=== PATIENT | female | born 1960 | race African-American/Black ===

== ENCOUNTER 2017-05-25 16:25 | Emergency (ER) | payer OTHER ==
[2017-05-25 17:15] LABS: #Basophils 0.1 thou/uL (0.0-0.2); #Eosinphils 0.2 thou/uL (0.0-0.7); #Lymphocytes 0.9 thou/uL (1.20-3.40); #Monocytes 1.2 thou/uL (0.11-0.59); %Basophils 0.7 % (0.0-1.0); %Eosinophils 2.3 % (0.0-10.0); %Lymphocytes 11.2 % (21.0-51.0); %Monocytes 13.7 % (0.0-10.0); Hemoglobin 15.2 g/dL (12.0-16.0); Mean Corpuscular HGB CONC 33.4 g/dL (32.0-36.0); Mean Corpuscular Hemoglobin 29.5 pg (27.0-31.0); Mean Corpuscular Volume 88.4 fl (81.0-99.0); Mean Platelet Volume 8.6 fL (7.4-10.4); Platelet Count 264 thou/uL (130-400); Red Blood Cell (RBC) Count 5.16 mill/uL (4.20-5.40); White Blood Cell (WBC) Count 8.4 thou/uL (4.8-10.8)
--- NOTE | 2017-05-25 17:28 | RAD ---
TWO VIEW CHEST: INDICATIONS: Chest pain. FINDINGS: No consolidation or effusion. There is levocurvature of the imaged thoracic spine. The cardiac silh ouette is normal in size. IMPRESSION: No focal consolidation. POS: CARITOH
[2017-05-25 17:33] LABS: Bilirubin Negative (Negative); Blood, Urine Negative (Negative); Clarity CLEAR (Clear); Glucose, Urine (Dipstick) >=1000 mg/dL (Negative); Leukocyte Negative (Negative); Nitrite Negative (Negative); Protein, Urine (Dipstick) Negative (Neg-Trace); Specific Gravity, Urine 1.029 (1.002-1.036); Urobilinogen 0.2 mg/dL (0.2-1.0)
[2017-05-25 17:42] LABS: ALT (SGPT) 44 U/L (8-55); AST (SGOT) 28 U/L (5-34); Albumin 4.3 g/dL (3.5-5.0); Alkaline Phosphatase 154 U/L (40-150); Anion Gap 15 mmol/L (10-20); BUN (Urea Nitrogen) 13 mg/dL (9.8-20.1); Bilirubin, Total 0.2 mg/dL (0.2-1.2); Calc. Creatinine Clearance 0 mL/min (70-130); Calcium 10.7 mg/dL (7.8-10.44); Carbon Dioxide 27 mmol/L (22-29); Chloride 95 mmol/L (98-107); Estimated GFR-MDRD 48; Globulin 3.4 g/dL (2.4-3.5); Glucose 469 mg/dL (70-105); Potassium 3.6 mmol/L (3.5-5.1); Protein, Total 7.7 g/dL (6.0-8.3); Sodium 133 mmol/L (136-145)
[2017-05-25 17:56] LABS: Base Excess-Venous 5.2 mmol/L (0 (+/- 2.5)); Bicarbonate (HCO3v) 30.5 mmol/L (1.0-85.0); CO2 Tension (PvCO2) 45.3 mmHg (41.0-51.0); Calcium, Ionized 1.01 mmol/L (1.12-1.32); Hemoglobin - Calc 17.4 g/dL (12.0-18.0); Potassium 3.4 mmol/L (3.4-4.7); T. Carbon Dioxide 31.9 mmol/L (1.0-85.0); pH (Venous) 7.436 (7.35-7.45); vO2 Saturation-calc 71.9 % (94-98)
[2017-05-25 17:58] LABS: Lipase 34 U/L (8-78)
[2017-05-25 17:59] LABS: CK (CPK) 480 U/L (29-168)
[2017-05-25 18:03] LABS: CKMB 5.1 ng/mL (0-6.6); Troponin I Less than 0.010 ng/mL (< 0.028)
[2017-05-25] MEDS ORDERED: Insulin Regular 300 UNITS/3 ML VIAL ONE (19:04)
--- NOTE | 2017-08-01 14:28 | EKG ---
Test Reason : Blood Pressure : / mmHG Vent. Rate : 086 BPM Atrial Rate : 086 BPM P-R Int : 202 ms QRS Dur : 102 ms QT Int : 358 ms P-R-T Axes : 064 015 040 degrees QTc Int : 428 ms Normal sinus rhythm Low voltage QRS Cannot rule out Anteroseptal infarct , age undetermined Abnormal ECG Confirmed by JOHN SANTOS, SHAR ([id number]), editor magazine [employer] ([id number]) on 08/01/2017 2:27:59 PM Referred By: Confirmed By:SHAR LOPEZ MD
== END 2017-05-25 19:45 | disposition home or self-care (01) ==
LOC: ERS 16:25
DX: E11.65 Type 2 diabetes mellitus with hyperglycemia (principal); R07.9 Chest pain, unspecified; E66.9 Obesity, unspecified; E78.5 Hyperlipidemia, unspecified; I10 Essential (primary) hypertension; R19.00 Intra-abdominal and pelvic swelling, mass and lump, unspecified site; F32.9 Major depressive disorder, single episode, unspecified; F17.210 Nicotine dependence, cigarettes, uncomplicated
CPT/HCPCS: 36415; 36416; 71046; 80053; 81003; 82010; 82330; 82550; 82553; 82803; 83690; 83880; 84484; 85025; 87040; 93005; 96361; 96374; J1815

== ENCOUNTER 2017-11-25 14:12 | Outpatient (CLI) | payer OTHER ==
--- NOTE | 2017-11-25 16:43 | MMO ---
BILATERAL SCREENING MAMMOGRAMS: Date: 11/25/17 Comparison made to prior exams from 2017 and 2013. This patient's mammogram was interpreted with the assistance of computer-aided detection. FINDINGS: Scattered fibroglandular densities. There are scattered nodular densities in both breasts, which are unchanged. No mass, distortion, or suspicious calcification. No interval change. Recommend one year f ollow-up. IMPRESSION: BIRADS 2: Benign Finding(s) POS: DONOVAN
== END 2017-11-25 14:13 | disposition home or self-care (01) ==
LOC: SCSMAMMO 14:12
PROVIDERS: ATTEND Family Medicine
DX: Z12.31 Encounter for screening mammogram for malignant neoplasm of breast (principal)
CPT/HCPCS: 77067

== ENCOUNTER 2017-12-11 13:16 | Emergency (ER) | payer OTHER | END 2017-12-11 14:25 | disposition left against medical advice (07) | LOC: ERS 13:16 | DX: Z53.21 Procedure and treatment not carried out due to patient leaving prior to being seen by health care provider (principal) ==

== ENCOUNTER 2017-12-12 09:15 | Emergency (ER) | payer OTHER ==
[2017-12-12] MEDS ORDERED: Ketorolac Tromethamine 60 MG/2 ML VIAL ONE (10:43)
== END 2017-12-12 11:05 | disposition home or self-care (01) ==
LOC: ERS 09:15
DX: M54.5 Low back pain (principal); E11.9 Type 2 diabetes mellitus without complications; I10 Essential (primary) hypertension; F17.210 Nicotine dependence, cigarettes, uncomplicated; F41.9 Anxiety disorder, unspecified; Z79.4 Long term (current) use of insulin; Z79.899 Other long term (current) drug therapy
CPT/HCPCS: 96372; J1885

== ENCOUNTER 2018-11-18 11:40 | Emergency (ER) | payer OTHER ==
--- NOTE | 2018-11-18 12:50 | RAD ---
EXAM: Single view of the chest HISTORY: Chest pain COMPARISON: 05/25/2017 FINDINGS: Single view of the chest shows a normal sized cardiomediastinal silhouette. There is no rudy dence of consolidation, mass, or pleural effusion. The bones are unremarkable. IMPRESSION: No evidence of acute cardiopulmonary disease
[2018-11-18] MEDS ORDERED: Ibuprofen 800 MG TAB ONE (12:59)
[2018-11-18] MEDS ORDERED: Albuterol Sulfate 1.25 MG/3 ML NEB ONE ×3 (13:44→14:26)
== END 2018-11-18 14:41 | disposition home or self-care (01) ==
LOC: ERS 11:40
DX: J20.9 Acute bronchitis, unspecified (principal); E11.9 Type 2 diabetes mellitus without complications; E78.5 Hyperlipidemia, unspecified; I10 Essential (primary) hypertension; F41.9 Anxiety disorder, unspecified; F32.9 Major depressive disorder, single episode, unspecified; F17.210 Nicotine dependence, cigarettes, uncomplicated; Z79.84 Long term (current) use of oral hypoglycemic drugs; Z79.82 Long term (current) use of aspirin; Z79.899 Other long term (current) drug therapy
CPT/HCPCS: 71045; 93005; 94640; J7620

== ENCOUNTER 2020-08-08 08:25 | Outpatient (CLI) | payer OTHER | END 2020-08-08 08:26 | disposition home or self-care (01) | LOC: BICMAMMO 08:25 | PROVIDERS: ATTEND Family Medicine | DX: Z12.31 Encounter for screening mammogram for malignant neoplasm of breast (principal); Z80.3 Family history of malignant neoplasm of breast | CPT/HCPCS: 77067 ==

== ENCOUNTER 2020-08-27 10:21 | Outpatient (CLI) | payer OTHER | END 2020-08-27 10:22 | disposition home or self-care (01) | LOC: BICCT 10:21 | PROVIDERS: ATTEND Family Medicine | DX: Z12.2 Encounter for screening for malignant neoplasm of respiratory organs (principal); F17.210 Nicotine dependence, cigarettes, uncomplicated; R91.1 Solitary pulmonary nodule | CPT/HCPCS: 71271 ==

== ENCOUNTER 2021-08-09 09:38 | Outpatient (CLI) | payer OTHER | END 2021-08-09 09:39 | disposition home or self-care (01) | LOC: BICMAMMO 09:38 | PROVIDERS: ATTEND Family Medicine | DX: Z12.31 Encounter for screening mammogram for malignant neoplasm of breast (principal); Z80.3 Family history of malignant neoplasm of breast | CPT/HCPCS: 77067 ==

== ENCOUNTER 2021-08-15 10:15 | Outpatient (CLI) | payer OTHER | END 2021-08-15 10:16 | disposition home or self-care (01) | LOC: BICCT 10:15 | PROVIDERS: ATTEND Family Medicine | DX: Z12.2 Encounter for screening for malignant neoplasm of respiratory organs (principal); F17.210 Nicotine dependence, cigarettes, uncomplicated | CPT/HCPCS: 71271 ==

== ENCOUNTER 2022-02-04 15:04 | Observation (INO) | payer OTHER ==
[2022-02-04 15:40] LABS: #Basophils 0.1 thou/uL (0.0-0.2); #Eosinphils 0.2 thou/uL (0.0-0.7); #Lymphocytes 3.3 thou/uL (1.20-3.40); #Neutrophils 7.8 thou/uL (1.40-6.50); %Basophils 0.5 % (0.0-1.0); %Eosinophils 1.5 % (0.0-10.0); %Lymphocytes 26.7 % (21.0-51.0); %Monocytes 7.9 % (0.0-10.0); %Neutrophils 63.4 % (42.0-75.0); Hemoglobin 14.5 g/dL (12.0-16.0); Mean Corpuscular HGB CONC 33.1 g/dL (32.0-36.0); Mean Corpuscular Hemoglobin 29.1 pg (27.0-31.0); Mean Corpuscular Volume 87.8 fl (78.0-98.0); Mean Platelet Volume 7.8 fL (7.4-10.4); Platelet Count 323 10x3/uL (130-400); RBC Distribution Width 13.5 % (11.5-14.5); Red Blood Cell (RBC) Count 4.99 mill/uL (4.20-5.40); White Blood Cell (WBC) Count 12.4 10x3/uL (4.8-10.8)
[2022-02-04 16:02] LABS: ALT (SGPT) 15 U/L (8-55); AST (SGOT) 11 U/L (5-34); Alkaline Phosphatase 164 U/L (40-110); Anion Gap 12 mmol/L (10-20); BUN (Urea Nitrogen) 9 mg/dL (9.8-20.1); Bilirubin, Total 0.3 mg/dL (0.2-1.2); Calc. Creatinine Clearance 0 mL/min (70-130); Calcium 9.6 mg/dL (7.8-10.44); Carbon Dioxide 27 mmol/L (22-29); Chloride 103 mmol/L (98-107); Estimated GFR 76; Globulin 3.4 g/dL (2.4-3.5); Glucose 338 mg/dL (70-105); Lipase 11 U/L (8-78); Potassium 3.7 mmol/L (3.5-5.1); Protein, Total 7.4 g/dL (6.0-8.3); Sodium 138 mmol/L (136-145)
[2022-02-04] MEDS ORDERED: Iopamidol-370 76% 500 ML 1 ML ONE (16:10)
[2022-02-04] MEDS ORDERED: Aspirin 325 MG TAB ONE (19:11)
[2022-02-04 20:03] LABS: Troponin I Less than 0.010 ng/mL (< 0.028)
[2022-02-04] MEDS ORDERED: Acetaminophen 325 MG TAB PO PRN (21:10)
[2022-02-04] MEDS ORDERED: Ondansetron ODT 4 MG TAB PO PRN (21:10)
[2022-02-04] MEDS ORDERED: Ondansetron PF 4 MG/2 ML Vial IVP PRN (21:10)
[2022-02-04] MEDS ORDERED: Dextrose 50% Abboject 50 ML SYRINGE SLOW IVP PRN (21:24)
[2022-02-04] MEDS ORDERED: Dextrose 5% in Water 1,000 ML IV PRN (21:24)
[2022-02-04] MEDS ORDERED: HumaLOG 300 UNITS/3 ML VIAL SC PRN (21:24)
[2022-02-04 21:43] VITALS: BMI 29.2
[2022-02-04 21:43] LABS: Troponin I Less than 0.010 ng/mL (< 0.028)
[2022-02-04] MEDS ORDERED: Polyethylene Glycol 3350 17 GM Packet PO SCH (23:00)
[2022-02-05 07:22] LABS: #Eosinphils 0.2 thou/uL (0.0-0.7); #Monocytes 0.9 thou/uL (0.11-0.59); #Neutrophils 8.2 thou/uL (1.40-6.50); %Basophils 0.2 % (0.0-1.0); %Eosinophils 1.7 % (0.0-10.0); %Lymphocytes 17.8 % (21.0-51.0); %Neutrophils 72.4 % (42.0-75.0); Hemoglobin 14.8 g/dL (12.0-16.0); Mean Corpuscular Hemoglobin 29.2 pg (27.0-31.0); Mean Corpuscular Volume 88.4 fl (78.0-98.0); Mean Platelet Volume 7.9 fL (7.4-10.4); Platelet Count 322 10x3/uL (130-400); RBC Distribution Width 13.6 % (11.5-14.5); Red Blood Cell (RBC) Count 5.06 mill/uL (4.20-5.40); White Blood Cell (WBC) Count 11.3 10x3/uL (4.8-10.8)
[2022-02-05] MEDS ORDERED: metFORMIN 500 MG TAB PO SCH (08:00)
[2022-02-05] MEDS ORDERED: HumaLOG 300 UNITS/3 ML VIAL SC SCH (08:00)
[2022-02-05 08:55] LABS: Hemoglobin A1c 10.6 % (4.0-6.0)
[2022-02-05] MEDS ORDERED: Enoxaparin Sodium 40 MG/0.4 ML SYRINGE SC SCH (09:00)
[2022-02-05] MEDS ORDERED: Alogliptin 25 MG TAB PO SCH (09:00)
[2022-02-05] MEDS ORDERED: Insulin Glargine 30 UNITS/0.3 ML VIAL SC SCH (09:00)
[2022-02-05] MEDS ORDERED: Atorvastatin Calcium 40 MG TAB PO SCH (09:00)
[2022-02-05] MEDS ORDERED: Gabapentin 300 MG CAP PO SCH (09:00)
[2022-02-05] MEDS ORDERED: Lisinopril 20 MG TAB PO SCH (09:00)
[2022-02-05] MEDS ORDERED: Metoprolol Tartrate 25 MG TAB PO SCH ×2 (12:00→21:00)
[2022-02-05 12:23] VITALS: BP 188/88; TEMP 98.7
[2022-02-06] MEDS ORDERED: Atorvastatin Calcium 40 MG TAB PO SCH (21:00)
== END 2022-02-05 12:26 | disposition left against medical advice (07) ==
LOC: ERS 15:04 → 2SW 18:36
PROVIDERS: ADMIT Family Medicine; ATTEND Family Medicine
DX: R07.89 Other chest pain (principal); K21.9 Gastro-esophageal reflux disease without esophagitis; R06.02 Shortness of breath; R13.10 Dysphagia, unspecified; I10 Essential (primary) hypertension; E78.5 Hyperlipidemia, unspecified; E11.9 Type 2 diabetes mellitus without complications; F17.210 Nicotine dependence, cigarettes, uncomplicated; I45.10 Unspecified right bundle-branch block; Z53.29 Procedure and treatment not carried out because of patient's decision for other reasons; Z79.4 Long term (current) use of insulin; Z79.84 Long term (current) use of oral hypoglycemic drugs; Z79.899 Other long term (current) drug therapy; Z88.0 Allergy status to penicillin; Z88.5 Allergy status to narcotic agent
CPT/HCPCS: 36415; 36416; 71045; 71275; 74220; 78451; 80053; 83036; 83690; 84484; 85025; 93005; 94760; 96372; A9500; G0378; J1650; J1815; Q9967

== ENCOUNTER 2022-03-05 08:19 | Outpatient (CLI) | payer OTHER ==
[2022-03-05] MEDS ORDERED: Iopamidol-370 76% 500 ML 1 ML ONE (09:06)
== END 2022-03-05 08:20 | disposition home or self-care (01) ==
LOC: BICCT 08:19
PROVIDERS: ATTEND Physician Assistant Medical
DX: R93.3 Abnormal findings on diagnostic imaging of other parts of digestive tract (principal); R13.19 Other dysphagia; K21.9 Gastro-esophageal reflux disease without esophagitis; K59.09 Other constipation; E27.8 Other specified disorders of adrenal gland; K68.9 Other disorders of retroperitoneum; K76.89 Other specified diseases of liver; Z86.010 Personal history of colon polyps
CPT/HCPCS: 74177; 82565

== ENCOUNTER 2022-03-05 09:43 | Outpatient (CLI) | payer OTHER | END 2022-03-05 09:44 | disposition home or self-care (01) | LOC: RAD 09:43 | PROVIDERS: ATTEND Student in an Organized Health Care Education/Training Program | DX: I69.191 Dysphagia following nontraumatic intracerebral hemorrhage (principal); K21.9 Gastro-esophageal reflux disease without esophagitis; R13.10 Dysphagia, unspecified | CPT/HCPCS: 74177; 74230; 82565 ==

== ENCOUNTER 2022-08-27 12:51 | Outpatient (CLI) | payer OTHER | END 2022-08-27 12:52 | disposition home or self-care (01) | LOC: BICMAMMO 12:51 | PROVIDERS: ATTEND Family Medicine | DX: Z12.31 Encounter for screening mammogram for malignant neoplasm of breast (principal); Z80.3 Family history of malignant neoplasm of breast | CPT/HCPCS: 77067 ==

== ENCOUNTER 2023-01-23 08:47 | Outpatient (CLI) | payer OTHER ==
[2023-01-23] MEDS ORDERED: Iopamidol 370 76% 100 ML VIAL ONE (13:37)
== END 2023-01-23 08:48 | disposition home or self-care (01) ==
LOC: CT 08:47
PROVIDERS: ATTEND Student in an Organized Health Care Education/Training Program
DX: C53.9 Malignant neoplasm of cervix uteri, unspecified (principal); E27.8 Other specified disorders of adrenal gland; R19.09 Other intra-abdominal and pelvic swelling, mass and lump; K76.89 Other specified diseases of liver
CPT/HCPCS: 74177; 82565

== ENCOUNTER 2023-03-12 07:24 | Outpatient (CLI) | payer OTHER | END 2023-03-12 07:25 | disposition home or self-care (01) | LOC: NM 07:24 | PROVIDERS: ATTEND Physician Assistant Medical | DX: K21.9 Gastro-esophageal reflux disease without esophagitis (principal); R11.2 Nausea with vomiting, unspecified | CPT/HCPCS: 78264; A9541 ==

== ENCOUNTER 2023-07-31 15:10 | Outpatient (CLI) | payer OTHER | END 2023-07-31 15:11 | disposition home or self-care (01) | LOC: BICCT 15:10 | PROVIDERS: ATTEND Student in an Organized Health Care Education/Training Program | DX: Z12.2 Encounter for screening for malignant neoplasm of respiratory organs (principal); F17.210 Nicotine dependence, cigarettes, uncomplicated | CPT/HCPCS: 71271 ==

== ENCOUNTER 2024-01-25 12:49 | Emergency (ER) | payer OTHER | END 2024-01-25 17:33 | LOC: ERS 12:49 | DX: Z53.21 Procedure and treatment not carried out due to patient leaving prior to being seen by health care provider (principal) ==

== ENCOUNTER 2024-03-29 07:34 | Outpatient (CLI) | payer OTHER ==
[2024-03-29] MEDS ORDERED: Regadenoson 0.4 MG/5 ML SYRINGE ONE (10:24)
== END 2024-03-29 07:35 | disposition home or self-care (01) ==
LOC: NM 07:34
PROVIDERS: ATTEND Internal Medicine
DX: R07.89 Other chest pain (principal)
CPT/HCPCS: 78452; 93017; A9502; J2785